=== PATIENT | male | born 1960 | race Caucasian/White ===

== ENCOUNTER 2017-12-05 11:09 | Inpatient (IN) | payer OTHER ==
[~2017-12-05] VITALS: Ht 180.3 cm; Wt 175.0 kg
[2017-12-05 12:11] LABS: Basophils # (auto) 0.1 uL; Eosinophils # (auto) 0 uL; Monocytes # (auto) 0.9 uL
[2017-12-05 12:13] LABS: Basophils % (auto) 0.4 % (0.0-2.0); Hemoglobin 13.1 g/dL (13.5-17.5); Lymphocytes # (auto) 1.1 uL; Lymphocytes % (auto) 8.4 % (10.0-50.0); Mean Corpuscular Hgb Conc. 32.1 g/dL (32.0-36.0); Mean Corpuscular Volume 77.9 fL (80.0-100.0); Monocytes % (auto) 6.7 % (0.0-12.0); Neutrophils # (auto) 11.3 uL; Neutrophils % (auto) 84.5 % (37.0-80.0); Nucleated Red Blood Cells % 0.1 %; Red Blood Cells 5.26 10^6/uL (4.5-5.90); White Blood Cell 13.4 10^3/uL (4.4-10.8)
[2017-12-05 12:14] LABS: Platelet Count (auto) 536 10^3/uL (140-450)
[2017-12-05 12:25] LABS: Urine Amorphous Crystal FEW /hpf (None Seen); Urine Bacteria FEW /hpf (None Seen); Urine Blood 2+ /uL (Negative); Urine Hyaline Cast FEW /lpf (0 - 2); Urine Mucus FEW (None Seen); Urine Specific Gravity 1.022 (1.001-1.035); Urine WBC 1 /hpf (0 - 3)
[2017-12-05 12:25] LABS: Lactic Acid w/Reflex 2.2 mmol/L (0.4-2.0)
[2017-12-05 12:29] LABS: Alanine Aminotransferase 26 U/L (16-61); Albumin 3.3 g/dL (3.4-5.0); Alkaline Phosphatase 62 U/L (45-117); Anion Gap 11 (5-15); Aspartate Aminotransferase 130 U/L (15-37); BUN/Creatinine Ratio 17.3; Bilirubin, Total 0.5 mg/dL (0.2-1.0); Blood Alcohol < 3.0 mg/dL (0-5); Blood Urea Nitrogen 51 mg/dL (7-18); Calcium 8.1 mg/dL (8.5-10.1); Carbon Dioxide 17 mmol/L (21-32); Chloride 117 mmol/L (98-107); GFR African American 29 mL/min; GFR Non-African American 24 mL/min; Glucose 145 mg/dL (74-106); Potassium 4.3 mmol/L (3.5-5.1); Sodium 145 mmol/L (136-145); Total Protein 8.5 g/dL (6.4-8.2)
[2017-12-05] MEDS ORDERED: SODIUM CHLORIDE 0.9% 1,000 ML IVB ONE (12:31)
[2017-12-05 12:37] LABS: Amphetamine Screen, Urine NEGATIVE (NEGATIVE); Barbiturate Scree,Urine NEGATIVE (NEGATIVE); Benzodiazephine Screen, Urine NEGATIVE (NEGATIVE); Cannabinoid Screen, Urine NEGATIVE (NEGATIVE); Cocaine Screen, Urine NEGATIVE (NEGATIVE); Opiate Scree,Urine NEGATIVE (NEGATIVE); Phencyclidine Screen, Urine NEGATIVE (NEGATIVE)
[2017-12-05 12:39] LABS: Alcohol, Urine < 3.0 mg/dL (0-5)
[2017-12-05] MEDS ORDERED: VANCOMYCIN 1GM/250ML 250 ML IV ONE (12:45)
[2017-12-05 13:02] LABS: INR 1.27 (0.9-1.15); Partial Thromboplastin Time 35.2 sec (23.78-33.04); Prothrombin Time 13.4 sec (9.27-12.13)
[2017-12-05] MEDS ORDERED: SODIUM CHLORIDE 0.9% 1,000 ML IV ONE ×2 (14:00→15:15)
[2017-12-05] MEDS ORDERED: CLINDAMYCIN 900MG IV 50 ML IV ONE (14:00)
[2017-12-05] MEDS ORDERED: LEVOFLOXACIN 500MG 100 ML IV ONE (14:00)
[2017-12-05] MEDS ORDERED: SODIUM CHLORIDE 0.9% 3,000 ML IV ONE (15:15)
[2017-12-05] MEDS ORDERED: TEMAZEPAM 15 MG CAP PO PRN (15:30)
[2017-12-05] MEDS ORDERED: PANTOPRAZOLE 40 MG/10 ML VIAL IV ONE (15:30)
[2017-12-05] MEDS ORDERED: MORPHINE SULF INJ 2 MG/ML SYRINGE 1ML IV PRN (15:30)
[2017-12-05] MEDS ORDERED: HYDROcodone-ACET 5/325MG TAB PO PRN (15:30)
[2017-12-05] MEDS ORDERED: PROMETHAZINE HCL 25 MG/ML 1ML IV PRN (15:30)
[2017-12-05] MEDS ORDERED: LORazepam 0.5 MG TAB PO PRN (15:30)
[2017-12-05] MEDS ORDERED: NITROGLYCERIN 0.4 MG SL TAB SL PRN (15:30)
[2017-12-05] MEDS ORDERED: ACETAMINOPHEN 500 MG TAB PO PRN (15:30)
[2017-12-05] MEDS ORDERED: SODIUM CHLORIDE 0.9% 2,000 ML IV ONE (16:00)
[2017-12-05] MEDS: CLINDAMYCIN 600MG IV 50 ML IV SCH (22:00)
[2017-12-06] VITALS (40 sets, daily range): BP systolic 83–147; BP diastolic 40–85
[2017-12-06] MEDS: SODIUM CHLORIDE 0.9% 1,000 ML IV SCH ×2 (05:55)
[2017-12-06] MEDS: CLINDAMYCIN 600MG IV 50 ML IV SCH (05:55)
[2017-12-06 07:45] LABS: Basophils # (auto) 0.1 uL; Eosinophils # (auto) 0 uL; Lymphocytes # (auto) 1.2 uL; Mean Corpuscular Volume 78.6 fL (80.0-100.0)
[2017-12-06] MEDS ORDERED: ACETAMINOPHEN 650 MG RECT SUPP PR PRN (07:45)
[2017-12-06 07:47] LABS: Basophils % (auto) 0.4 % (0.0-2.0); Eosinophils % (auto) 0.1 % (0.0-7.0); Hematocrit 38.3 % (41.0-53.0); Hemoglobin 11.7 g/dL (13.5-17.5); Lymphocytes % (auto) 9.5 % (10.0-50.0); Mean Corpuscular Hemoglobin 24.1 pg (28.0-32.0); Mean Corpuscular Hgb Conc. 30.6 g/dL (32.0-36.0); Neutrophils # (auto) 10.3 uL; Platelet Count (auto) 488 10^3/uL (140-450); Red Blood Cells 4.88 10^6/uL (4.5-5.90); Red Cell Distribution Width 17.8 % (11.8-14.3); White Blood Cell 12.5 10^3/uL (4.4-10.8)
[2017-12-06 07:59] LABS: Albumin 2.8 g/dL (3.4-5.0); BUN/Creatinine Ratio 16.7; Calcium 7.6 mg/dL (8.5-10.1); Potassium 4.6 mmol/L (3.5-5.1)
[2017-12-06 08:01] LABS: Bilirubin, Total 0.3 mg/dL (0.2-1.0); Total Protein 7.4 g/dL (6.4-8.2)
[2017-12-06] MEDS ORDERED: ETOMIDATE (2MG/ML) 20ML VIAL IV ONE ×2 (08:56→09:00)
[2017-12-06] MEDS ORDERED: SUCCINYLCHOLINE CHLORIDE 20 MG/ML 10ML VIAL IV ONE ×2 (08:57→09:00)
[2017-12-06] MEDS ORDERED: PROPOFOL 100 ML IV ONE (09:14)
[2017-12-06] MEDS ORDERED: SOD CHL 0.45% 1,000 ML IV SCH (09:15)
[2017-12-06] MEDS: MIDAZOLAM DRIP 50 mg/50mL 50 ML IV SCH ×4 (09:21→23:05)
[2017-12-06] MEDS: PROPOFOL 100 ML IV SCH ×3 (09:22→18:15)
[2017-12-06] MEDS ORDERED: LINEZOLID 600MG/300ML 300 ML IV SCH (10:00)
[2017-12-06] MEDS ORDERED: LEVOFLOXACIN 250MG 50 ML IV SCH (10:00)
[2017-12-06] MEDS: PANTOPRAZOLE 40 MG/10 ML VIAL IV SCH (11:02)
[2017-12-06] MEDS ORDERED: NOREPINEPHRINE 8 MG/250ML KIT 250 ML IV ONE (11:48)
[2017-12-06] MEDS ORDERED: LIDOCAINE 1% (LOCAL ANESTH.) PF 5ml SDV ID ONE (12:00)
[2017-12-06] MEDS ORDERED: ENOXAPARIN SOD 40 MG/0.4 ML SYRINGE SC ONE (12:00)
[2017-12-06] MEDS ORDERED: ADENOSINE 133 MG in GIVE UN-DILUTED 0 ML IV ONE (12:00)
[2017-12-06] MEDS: NOREPINEPHRINE 8 MG/250ML KIT 250 ML IV SCH (12:05)
[2017-12-06] MEDS ORDERED: CALCIUM GLUC 4.65meq/50ml D5AE 50 ML IV ONE (12:30)
[2017-12-06] MEDS: ACETAMINOPHEN 650 MG RECT SUPP PR PRN (13:13)
[2017-12-06] MEDS ORDERED: VANCOMYCIN 1GM/250ML 250 ML IV ONE (15:00)
[2017-12-06] MEDS ORDERED: VANCOMYCIN PER PHARMACY 0 MG IV SCH (15:00)
[2017-12-06] MEDS: SOD CHL 0.45% 1,000 ML IV SCH ×2 (15:53→22:15)
[2017-12-06 17:49] LABS: Potassium 4.1 mmol/L (3.5-5.1)
[2017-12-06] MEDS: SODIUM CHLOR 0.9% PF (SALINE LOCK) 10ML VIAL/SYR IV SCH (22:00)
[2017-12-07] VITALS (97 sets, daily range): BP systolic 73–166; BP diastolic 39–97
[2017-12-07] MEDS: PROPOFOL 100 ML IV SCH ×3 (02:57→15:01)
[2017-12-07 04:16] LABS: Basophils # (auto) 0.1 uL; Basophils % (auto) 0.8 % (0.0-2.0); Eosinophils # (auto) 0.1 uL; Hemoglobin 12.1 g/dL (13.5-17.5); Mean Corpuscular Hemoglobin 24.7 pg (28.0-32.0); Neutrophils # (auto) 7.4 uL; Nucleated Red Blood Cells % 0.1 %
[2017-12-07 04:17] LABS: Eosinophils % (auto) 0.9 % (0.0-7.0); Hematocrit 38.3 % (41.0-53.0); Lymphocytes % (auto) 18.7 % (10.0-50.0); Mean Corpuscular Hgb Conc. 31.6 g/dL (32.0-36.0); Mean Corpuscular Volume 78.2 fL (80.0-100.0); Monocytes # (auto) 1.2 uL; Monocytes % (auto) 11.4 % (0.0-12.0); Neutrophils % (auto) 68.2 % (37.0-80.0); Platelet Count (auto) 420 10^3/uL (140-450); Red Cell Distribution Width 17.9 % (11.8-14.3); White Blood Cell 10.9 10^3/uL (4.4-10.8)
[2017-12-07 04:44] LABS: Albumin 2.7 g/dL (3.4-5.0); BUN/Creatinine Ratio 14.4; Bilirubin, Total 0.5 mg/dL (0.2-1.0); Calcium 8.3 mg/dL (8.5-10.1); Potassium 3.9 mmol/L (3.5-5.1); Total Protein 7.1 g/dL (6.4-8.2)
[2017-12-07] MEDS: MIDAZOLAM DRIP 50 mg/50mL 50 ML IV SCH ×5 (05:31→21:00)
[2017-12-07] MEDS: SOD CHL 0.45% 1,000 ML IV SCH ×2 (06:39→13:41)
[2017-12-07] MEDS: NOREPINEPHRINE 8 MG/250ML KIT 250 ML IV SCH ×2 (08:08→21:00)
[2017-12-07] MEDS: PANTOPRAZOLE 40 MG/10 ML VIAL IV SCH (09:24)
[2017-12-07] MEDS: ENOXAPARIN SOD 40 MG/0.4 ML SYRINGE SC SCH (09:24)
[2017-12-07] MEDS: SODIUM CHLOR 0.9% PF (SALINE LOCK) 10ML VIAL/SYR IV SCH ×2 (09:25→21:34)
[2017-12-07] MEDS: ACETAMINOPHEN 650 MG RECT SUPP PR PRN (14:53)
[2017-12-07] MEDS ORDERED: VANCOMYCIN 1,500 MG in D5W 5% 250 ML IV ONE (18:30)
[2017-12-08] VITALS (106 sets, daily range): BP systolic 90–173; BP diastolic 43–110
[2017-12-08] MEDS: MIDAZOLAM DRIP 50 mg/50mL 50 ML IV SCH ×5 (00:01→12:56)
[2017-12-08 04:07] LABS: Basophils # (auto) 0.1 uL; Eosinophils # (auto) 0.4 uL; Hemoglobin 11.6 g/dL (13.5-17.5); Monocytes # (auto) 0.8 uL; Monocytes % (auto) 9.3 % (0.0-12.0); Nucleated Red Blood Cells % 0.1 %; Platelet Count (auto) 378 10^3/uL (140-450)
[2017-12-08 04:09] LABS: Basophils % (auto) 1.1 % (0.0-2.0); Eosinophils % (auto) 4.5 % (0.0-7.0); Hematocrit 36.6 % (41.0-53.0); Lymphocytes % (auto) 22.1 % (10.0-50.0); Mean Corpuscular Hemoglobin 24.6 pg (28.0-32.0); Mean Corpuscular Hgb Conc. 31.6 g/dL (32.0-36.0); Mean Corpuscular Volume 77.7 fL (80.0-100.0); Neutrophils # (auto) 5.7 uL; Red Cell Distribution Width 17.7 % (11.8-14.3)
[2017-12-08 04:29] LABS: Potassium 3.7 mmol/L (3.5-5.1)
[2017-12-08 04:38] LABS: Albumin 2.4 g/dL (3.4-5.0); Bilirubin, Total 0.5 mg/dL (0.2-1.0); Calcium 7.7 mg/dL (8.5-10.1); Total Protein 6.5 g/dL (6.4-8.2)
[2017-12-08] MEDS ORDERED: VANCOMYCIN 1,500 MG in D5W 5% 250 ML IV ONE (09:00)
[2017-12-08] MEDS: ENOXAPARIN SOD 40 MG/0.4 ML SYRINGE SC SCH (09:37)
[2017-12-08] MEDS: PANTOPRAZOLE 40 MG/10 ML VIAL IV SCH (09:37)
[2017-12-08] MEDS: SODIUM CHLOR 0.9% PF (SALINE LOCK) 10ML VIAL/SYR IV SCH ×2 (10:00→22:53)
[2017-12-08 12:32] LABS: Creatinine, Urine 188 mg/dL (30.0-125.0); Sodium Urine 72 mmol/L (40-220)
[2017-12-08] MEDS: SOD CHL 0.45% 1,000 ML IV SCH (12:50)
[2017-12-09] VITALS (104 sets, daily range): BP systolic 101–179; BP diastolic 52–116
[2017-12-09] MEDS: PROPOFOL 100 ML IV SCH ×2 (00:22→21:22)
[2017-12-09 04:56] LABS: Basophils # (auto) 0.1 uL; Eosinophils # (auto) 0.4 uL; Hemoglobin 11.5 g/dL (13.5-17.5); Lymphocytes # (auto) 1.8 uL
[2017-12-09 05:01] LABS: Basophils % (auto) 1.2 % (0.0-2.0); Eosinophils % (auto) 5.6 % (0.0-7.0); Hematocrit 36.9 % (41.0-53.0); Lymphocytes % (auto) 25.5 % (10.0-50.0); Mean Corpuscular Hemoglobin 24.2 pg (28.0-32.0); Mean Corpuscular Hgb Conc. 31.2 g/dL (32.0-36.0); Mean Corpuscular Volume 77.6 fL (80.0-100.0); Monocytes # (auto) 0.5 uL; Monocytes % (auto) 7.2 % (0.0-12.0); Neutrophils # (auto) 4.2 uL; Neutrophils % (auto) 60.5 % (37.0-80.0); Platelet Count (auto) 373 10^3/uL (140-450); Red Blood Cells 4.76 10^6/uL (4.5-5.90); Red Cell Distribution Width 17.7 % (11.8-14.3); White Blood Cell 6.9 10^3/uL (4.4-10.8)
[2017-12-09 05:28] LABS: Albumin 2.3 g/dL (3.4-5.0); BUN/Creatinine Ratio 12.4; Bilirubin, Total 0.4 mg/dL (0.2-1.0); Calcium 7.8 mg/dL (8.5-10.1); Phosphorus 2.2 mg/dL (2.5-4.90); Potassium 3.4 mmol/L (3.5-5.1); Total Protein 6.3 g/dL (6.4-8.2)
[2017-12-09] MEDS: SOD CHL 0.45% 1,000 ML IV SCH ×2 (06:25→21:18)
[2017-12-09] MEDS: SODIUM CHLOR 0.9% PF (SALINE LOCK) 10ML VIAL/SYR IV SCH ×2 (10:09→21:36)
[2017-12-09] MEDS: ENOXAPARIN SOD 40 MG/0.4 ML SYRINGE SC SCH (10:09)
[2017-12-09] MEDS: ACETAMINOPHEN 325 MG TAB PO PRN ×2 (10:09→17:03)
[2017-12-09] MEDS: PANTOPRAZOLE 40 MG/10 ML VIAL IV SCH (10:09)
[2017-12-09] MEDS: VANCOMYCIN 1,500 MG in D5W 5% 250 ML IV SCH (10:10)
[2017-12-09] MEDS ORDERED: POTASSIUM EFFERVESENT TAB 25 MEQ GT ONE (10:15)
[2017-12-09] MEDS ORDERED: POTASSIUM PHOSPHATE 22 MEQ in SODIUM CHL 0.9% 100 ML IV ONE (10:15)
[2017-12-09] MEDS: NOREPINEPHRINE 8 MG/250ML KIT 250 ML IV SCH (12:39)
[2017-12-09] MEDS: MORPHINE SULF INJ 2 MG/ML SYRINGE 1ML IV PRN ×2 (15:09→19:07)
[2017-12-09] MEDS: DEXMEDETOMIDINE HCL 400 MCG in D5W 5% 96 ML IV SCH (21:19)
[2017-12-10] VITALS (62 sets, daily range): BP systolic 101–181; BP diastolic 54–134
[2017-12-10 04:02] LABS: Albumin 2.4 g/dL (3.4-5.0); Calcium 8.1 mg/dL (8.5-10.1)
[2017-12-10 04:07] LABS: BUN/Creatinine Ratio 11.6; Bilirubin, Total 0.4 mg/dL (0.2-1.0); Total Protein 6.5 g/dL (6.4-8.2)
[2017-12-10] MEDS: DEXMEDETOMIDINE HCL 400 MCG in D5W 5% 96 ML IV SCH ×2 (05:20→17:06)
[2017-12-10 06:26] LABS: Eosinophils # (auto) 0.4 uL; Monocytes # (auto) 0.6 uL; Neutrophils # (auto) 5.4 uL; Red Cell Distribution Width 17.4 % (11.8-14.3); White Blood Cell 7.9 10^3/uL (4.4-10.8)
[2017-12-10 06:33] LABS: Basophils # (auto) 0.1 uL; Basophils % (auto) 0.7 % (0.0-2.0); Eosinophils % (auto) 5.7 % (0.0-7.0); Hematocrit 36.6 % (41.0-53.0); Hemoglobin 11.7 g/dL (13.5-17.5); Lymphocytes # (auto) 1.4 uL; Lymphocytes % (auto) 17.5 % (10.0-50.0); Mean Corpuscular Hemoglobin 24.8 pg (28.0-32.0); Mean Corpuscular Volume 77.6 fL (80.0-100.0); Monocytes % (auto) 7.9 % (0.0-12.0); Neutrophils % (auto) 68.2 % (37.0-80.0); Platelet Count (auto) 348 10^3/uL (140-450); Red Blood Cells 4.72 10^6/uL (4.5-5.90)
[2017-12-10] MEDS: MIDAZOLAM DRIP 50 mg/50mL 50 ML IV SCH (08:55)
[2017-12-10] MEDS: VANCOMYCIN 1,500 MG in D5W 5% 250 ML IV SCH (09:21)
[2017-12-10] MEDS: SODIUM CHLOR 0.9% PF (SALINE LOCK) 10ML VIAL/SYR IV SCH (10:04)
[2017-12-10] MEDS: PANTOPRAZOLE 40 MG/10 ML VIAL IV SCH (10:04)
[2017-12-10] MEDS: ENOXAPARIN SOD 40 MG/0.4 ML SYRINGE SC SCH (10:05)
[2017-12-10] MEDS: LABETALOL HCL 5 MG/ML ML 20ML VIAL IV PRN (10:06)
[2017-12-10] MEDS: ACETAMINOPHEN 325 MG TAB PO PRN (10:18)
[2017-12-10] MEDS: NOREPINEPHRINE 8 MG/250ML KIT 250 ML IV SCH (12:00)
[2017-12-10] MEDS: PROPOFOL 100 ML IV SCH (18:22)
[2017-12-10] MEDS: SOD CHL 0.45% 1,000 ML IV SCH (19:30)
[2017-12-11] VITALS (27 sets, daily range): BP systolic 139–167; BP diastolic 62–105
[2017-12-11] MEDS: VANCOMYCIN 1,500 MG in D5W 5% 250 ML IV SCH (09:33)
[2017-12-11] MEDS: PANTOPRAZOLE 40 MG/10 ML VIAL IV SCH (10:56)
[2017-12-11] MEDS: FLUCONAZOLE 200MG/100ML 100 ML IV SCH (10:58)
[2017-12-11] MEDS: ENOXAPARIN SOD 40 MG/0.4 ML SYRINGE SC SCH (10:58)
[2017-12-11] MEDS: SODIUM CHLOR 0.9% PF (SALINE LOCK) 10ML VIAL/SYR IV SCH ×3 (10:58→20:59)
[2017-12-12] VITALS (7 sets, daily range): BP systolic 130–159; BP diastolic 61–104
[2017-12-12] MEDS: LABETALOL HCL 5 MG/ML ML 20ML VIAL IV PRN (05:33)
[2017-12-12] MEDS: VANCOMYCIN 1,500 MG in D5W 5% 250 ML IV SCH (09:26)
[2017-12-12] MEDS ORDERED: ASPI81CH43 PO (10:19)
[2017-12-12] MEDS: FLUCONAZOLE 200MG/100ML 100 ML IV SCH (10:21)
[2017-12-12] MEDS: SODIUM CHLOR 0.9% PF (SALINE LOCK) 10ML VIAL/SYR IV SCH ×2 (10:21→22:03)
[2017-12-12] MEDS: PANTOPRAZOLE 40 MG/10 ML VIAL IV SCH (10:21)
[2017-12-12] MEDS: ENOXAPARIN SOD 40 MG/0.4 ML SYRINGE SC SCH (10:22)
[2017-12-12] MEDS ORDERED: LISINOPRIL 20 MG TAB PO ONE (11:45)
[2017-12-12] MEDS: LISINOPRIL 20 MG TAB PO SCH (22:03)
[2017-12-13] MEDS: ACETAMINOPHEN 325 MG TAB PO PRN ×2 (00:48→17:53)
[2017-12-13 05:00] VITALS: BP 137/72
[2017-12-13 09:00] VITALS: BP 143/85
[2017-12-13] MEDS: VANCOMYCIN 1,500 MG in D5W 5% 250 ML IV SCH (09:00)
[2017-12-13 09:28] LABS: Basophils # (auto) 0 uL; Hemoglobin 12.2 g/dL (13.5-17.5); Red Cell Distribution Width 17.6 % (11.8-14.3)
[2017-12-13 09:32] LABS: Basophils % (auto) 0.6 % (0.0-2.0); Eosinophils # (auto) 0.3 uL; Eosinophils % (auto) 4.5 % (0.0-7.0); Hematocrit 39.1 % (41.0-53.0); Lymphocytes # (auto) 1.2 uL; Mean Corpuscular Hemoglobin 24.5 pg (28.0-32.0); Mean Corpuscular Hgb Conc. 31.3 g/dL (32.0-36.0); Mean Corpuscular Volume 78.1 fL (80.0-100.0); Monocytes # (auto) 0.6 uL; Neutrophils % (auto) 68.9 % (37.0-80.0); Platelet Count (auto) 263 10^3/uL (140-450); White Blood Cell 7.2 10^3/uL (4.4-10.8)
[2017-12-13 09:49] LABS: Albumin 2.6 g/dL (3.4-5.0); BUN/Creatinine Ratio 9.1; Bilirubin, Total 0.8 mg/dL (0.2-1.0); Phosphorus 3.2 mg/dL (2.5-4.90); Potassium 3.6 mmol/L (3.5-5.1); Total Protein 6.9 g/dL (6.4-8.2)
[2017-12-13] MEDS: PANTOPRAZOLE 40 MG/10 ML VIAL IV SCH (10:30)
[2017-12-13] MEDS: SODIUM CHLOR 0.9% PF (SALINE LOCK) 10ML VIAL/SYR IV SCH ×2 (10:30→21:31)
[2017-12-13] MEDS: FLUCONAZOLE 200MG/100ML 100 ML IV SCH (10:30)
[2017-12-13] MEDS: ENOXAPARIN SOD 40 MG/0.4 ML SYRINGE SC SCH (10:31)
[2017-12-13] MEDS: LISINOPRIL 20 MG TAB PO SCH ×2 (10:31→21:30)
[2017-12-13 12:32] VITALS: BP 131/78
[2017-12-13 17:00] VITALS: BP 140/97
[2017-12-13] MEDS ORDERED: LISI-646 PO (19:05)
[2017-12-13] MEDS: Pro-Stat SF 30ml Vanilla PO SCH (21:30)
[2017-12-13] MEDS: ASCORBIC ACID 500 MG TAB PO SCH (21:30)
[2017-12-13 21:53] VITALS: BP 140/88
[2017-12-14 05:03] VITALS: BP 142/89
[2017-12-14 06:55] LABS: Basophils # (auto) 0.1 uL; Eosinophils # (auto) 0.4 uL; Hematocrit 36.6 % (41.0-53.0); Monocytes # (auto) 0.7 uL; Neutrophils % (auto) 65.7 % (37.0-80.0)
[2017-12-14 06:58] LABS: Basophils % (auto) 1.2 % (0.0-2.0); Hemoglobin 11.6 g/dL (13.5-17.5); Lymphocytes # (auto) 1.4 uL; Lymphocytes % (auto) 18.5 % (10.0-50.0); Mean Corpuscular Hemoglobin 24.8 pg (28.0-32.0); Mean Corpuscular Hgb Conc. 31.8 g/dL (32.0-36.0); Mean Corpuscular Volume 78.1 fL (80.0-100.0); Monocytes % (auto) 9.6 % (0.0-12.0); Neutrophils # (auto) 4.9 uL; Nucleated Red Blood Cells % 0.4 %; Platelet Count (auto) 212 10^3/uL (140-450); Red Blood Cells 4.68 10^6/uL (4.5-5.90); Red Cell Distribution Width 17.8 % (11.8-14.3); White Blood Cell 7.4 10^3/uL (4.4-10.8)
[2017-12-14 07:20] LABS: Albumin 2.5 g/dL (3.4-5.0); BUN/Creatinine Ratio 8.8; Bilirubin, Total 0.8 mg/dL (0.2-1.0); Calcium 7.7 mg/dL (8.5-10.1); Potassium 3.5 mmol/L (3.5-5.1); Total Protein 6.6 g/dL (6.4-8.2)
[2017-12-14 08:00] VITALS: BP 140/88
[2017-12-14 09:30] VITALS: BP 141/90
[2017-12-14] MEDS: PANTOPRAZOLE 40 MG/10 ML VIAL IV SCH (10:40)
[2017-12-14] MEDS: FLUCONAZOLE 200MG/100ML 100 ML IV SCH (10:40)
[2017-12-14] MEDS: SODIUM CHLOR 0.9% PF (SALINE LOCK) 10ML VIAL/SYR IV SCH ×2 (10:40→21:47)
[2017-12-14] MEDS: VANCOMYCIN 1,500 MG in D5W 5% 250 ML IV SCH (10:40)
[2017-12-14] MEDS: ASCORBIC ACID 500 MG TAB PO SCH ×2 (10:41→22:40)
[2017-12-14] MEDS: Pro-Stat SF 30ml Vanilla PO SCH ×2 (10:41→21:47)
[2017-12-14] MEDS: B-COMPLEX W/ C & FOLIC ACID(NEPHROVITE TAB) PO SCH (10:41)
[2017-12-14] MEDS: LISINOPRIL 20 MG TAB PO SCH ×2 (10:41→22:41)
[2017-12-14] MEDS: ENOXAPARIN SOD 40 MG/0.4 ML SYRINGE SC SCH (10:41)
[2017-12-14 13:00] VITALS: BP 117/63
[2017-12-14 21:37] VITALS: BP 157/96
[2017-12-15 05:26] VITALS: BP 159/86
[2017-12-15 08:00] VITALS: BP 157/76
[2017-12-15 09:00] VITALS: BP_SYST 101; BP_SYST 153; BP_DIAS 75; BP_DIAS 97
[2017-12-15] MEDS: ASCORBIC ACID 500 MG TAB PO SCH (10:09)
[2017-12-15] MEDS: Pro-Stat SF 30ml Vanilla PO SCH (10:09)
[2017-12-15] MEDS: B-COMPLEX W/ C & FOLIC ACID(NEPHROVITE TAB) PO SCH (10:09)
[2017-12-15] MEDS: SODIUM CHLOR 0.9% PF (SALINE LOCK) 10ML VIAL/SYR IV SCH (10:09)
[2017-12-15] MEDS: PANTOPRAZOLE 40 MG/10 ML VIAL IV SCH (10:09)
[2017-12-15] MEDS: FLUCONAZOLE 200MG/100ML 100 ML IV SCH (10:09)
[2017-12-15] MEDS: LISINOPRIL 20 MG TAB PO SCH (10:11)
[2017-12-15] MEDS: ENOXAPARIN SOD 40 MG/0.4 ML SYRINGE SC SCH (10:11)
[2017-12-15 10:20] VITALS: BP 153/97
[2017-12-15] MEDS: VANCOMYCIN 1,500 MG in D5W 5% 250 ML IV SCH (12:06)
[2017-12-15 13:00] VITALS: BP 144/93
== END 2017-12-15 15:16 | disposition home health service (06) | DRG 871 ==
LOC: EDBD 11:09 → ER 11:09 → OVERFLOW 11:10 → ICU WEST 12-06 14:59 → TELE-WESTW 12-12 00:25
PROVIDERS: ADMIT Internal Medicine; ATTEND Family Medicine
PROC: 02HV33Z Insertion of Infusion Device into Superior Vena Cava, Percutaneous Approach (ICD-10-PCS; 2017-12-05)
PROC: 5A1945Z Respiratory Ventilation, 24-96 Consecutive Hours (ICD-10-PCS; principal; 2017-12-06)
PROC: 0BH17EZ Insertion of Endotracheal Airway into Trachea, Via Natural or Artificial Opening (ICD-10-PCS; 2017-12-06)
DX: A41.9 Sepsis, unspecified organism (principal); E11.01 Type 2 diabetes mellitus with hyperosmolarity with coma; G92 Toxic encephalopathy; R65.21 Severe sepsis with septic shock; J96.21 Acute and chronic respiratory failure with hypoxia; N17.0 Acute kidney failure with tubular necrosis; J96.22 Acute and chronic respiratory failure with hypercapnia; N18.4 Chronic kidney disease, stage 4 (severe); N39.0 Urinary tract infection, site not specified; M62.82 Rhabdomyolysis; L03.116 Cellulitis of left lower limb; L03.115 Cellulitis of right lower limb; E44.1 Mild protein-calorie malnutrition; E87.1 Hypo-osmolality and hyponatremia; E87.4 Mixed disorder of acid-base balance; I13.0 Hypertensive heart and chronic kidney disease with heart failure and stage 1 through stage 4 chronic kidney disease, or unspecified chronic kidney disease; L97.909 Non-pressure chronic ulcer of unspecified part of unspecified lower leg with unspecified severity; Z68.43 Body mass index [BMI] 50.0-59.9, adult; E66.01 Morbid (severe) obesity due to excess calories; I49.3 Ventricular premature depolarization; D64.9 Anemia, unspecified; E11.22 Type 2 diabetes mellitus with diabetic chronic kidney disease; E11.622 Type 2 diabetes mellitus with other skin ulcer; E83.39 Other disorders of phosphorus metabolism; E86.0 Dehydration; E87.6 Hypokalemia; G47.30 Sleep apnea, unspecified; I25.10 Atherosclerotic heart disease of native coronary artery without angina pectoris; I50.9 Heart failure, unspecified; I67.2 Cerebral atherosclerosis; Z82.3 Family history of stroke; Z82.49 Family history of ischemic heart disease and other diseases of the circulatory system; Z83.3 Family history of diabetes mellitus; Z79.899 Other long term (current) drug therapy; Z79.82 Long term (current) use of aspirin; Z88.0 Allergy status to penicillin
CPT/HCPCS: 36415; 36569; 36600; 51702; 70450; 71045; 71250; 73700; 76775; 80048; 80053; 80202; 80307; 80320; 81001; 82550; 82570; 82805; 82962; 83036; 83605; 83735; 84100; 84300; 84443; 84484; 85025; 85379; 85610; 85730; 87040; 87070; 87077; 87081; 87086; 87186; 87205; 93005; 93970; 94002; 94003; 94640; 94761; 95819; 96361; 96365; 96366; 96367; 96368; 97163; 99291; C9113; G0378; J0153; J0330; J0610; J1450; J1956; J2250; J2704; J3490; J7060

== ENCOUNTER 2020-01-12 04:17 | Inpatient (IN) | payer OTHER ==
[~2020-01-12] VITALS: Ht 182.9 cm; Wt 173.8 kg
[~2020-01-12 04:17] MED LIST: ASPI81CH43 PO; LISI-646 PO
[2020-01-12 05:49] LABS: Basophils # (auto) 0.1 10 ^3/uL (0-0.2); Eosinophils # (auto) 0.1 10 ^3/uL (0-0.8); Monocytes # (auto) 0.7 10 ^3/uL (0-1.3)
[2020-01-12 05:52] LABS: Basophils % (auto) 0.5 % (0.0-2.0); Eosinophils % (auto) 0.7 % (0.0-7.0); Hematocrit 48.7 % (41.0-53.0); Hemoglobin 15.2 g/dL (13.5-17.5); Lymphocytes % (auto) 23.3 % (10.0-50.0); Mean Corpuscular Hemoglobin 24.4 pg (28.0-32.0); Mean Corpuscular Hgb Conc. 31.2 g/dL (32.0-36.0); Mean Corpuscular Volume 78.3 fL (80.0-100.0); Monocytes % (auto) 5.6 % (0.0-12.0); Neutrophils % (auto) 69.9 % (37.0-80.0); Platelet Count (auto) 254 10^3/uL (140-450); Red Blood Cells 6.22 10^6/uL (4.5-5.90); White Blood Cell 12.8 10^3/uL (4.4-10.8)
[2020-01-12 06:03] LABS: INR 1.08 (0.9-1.15); Partial Thromboplastin Time 29.6 sec (23.0-31.2)
[2020-01-12 06:05] LABS: Potassium 4.4 mmol/L (3.5-5.1)
[2020-01-12 06:16] LABS: Albumin 3.4 g/dL (3.4-5.0); BUN/Creatinine Ratio 19.6; Bilirubin, Total 0.7 mg/dL (0.2-1.0); Calcium 8.6 mg/dL (8.5-10.1); Total Protein 8.4 g/dL (6.4-8.2)
[2020-01-12] MEDS ORDERED: DexAMETHasone SOD PHOS 10MG/1ML VIAL INJ IV ONE (06:45)
[2020-01-12 07:20] LABS: CRP High Sensitivity 5.37 mg/dL (< 0.3)
[2020-01-12] MEDS ORDERED: ENOXAPARIN SOD 150 MG/1 ML SYRINGE SC ONE (07:30)
[2020-01-12] MEDS ORDERED: ASPirin 81 mg TAB PO ONE (07:30)
[2020-01-12] MEDS ORDERED: FUROSEMIDE 20 MG/2 ML VIAL IV ONE ×2 (07:30→09:00)
[2020-01-12] MEDS ORDERED: LORazepam 2MG/ML-1ML VIAL IV PRN (09:00)
[2020-01-12] MEDS ORDERED: CHOLECALCIFEROL (VITD3) 2,000 UNIT CAP PO ONE (09:00)
[2020-01-12] MEDS ORDERED: MORPHINE SULF INJ 2 MG/ML SYRINGE 1ML IV PRN (09:00)
[2020-01-12] MEDS ORDERED: NITROGLYCERIN 0.4 MG SL TAB SL PRN (09:00)
[2020-01-12] MEDS ORDERED: THIAMINE 100mg/ml INJ (200mg/2ml VIAL) IV ONE (09:00)
[2020-01-12] MEDS ORDERED: ASCORBIC ACID 500 MG TAB PO ONE (09:00)
[2020-01-12] MEDS ORDERED: VANCOMYCIN PER PHARMACY 1,000 MG IV SCH (09:00)
[2020-01-12] MEDS ORDERED: LACTATED RINGER'S 1,000 ML IV ONE (09:00)
[2020-01-12] MEDS ORDERED: MEROPENEM 500MG IVPB 50 ML IV ONE (09:00)
[2020-01-12] MEDS ORDERED: MORPHINE SULFATE 4 MG/ML SYR/VIAL IV PRN (09:00)
[2020-01-12] MEDS ORDERED: SODIUM CHLORIDE 0.9% 1,000 ML IV SCH ×2 (09:00→15:30)
[2020-01-12] MEDS ORDERED: METOPROLOL SUCCINATE XL 50 MG TAB PO ONE (09:15)
[2020-01-12] MEDS: THIAMINE 100mg/ml INJ (200mg/2ml VIAL) IV SCH (09:20)
[2020-01-12] MEDS: ASPirin 81 mg TAB PO SCH (09:21)
[2020-01-12] MEDS: ENOXAPARIN SOD 40 MG/0.4 ML SYRINGE SC SCH (09:21)
[2020-01-12] MEDS: FAMOTIDINE (10MG/ML) 2ML VL IV SCH (09:21)
[2020-01-12] MEDS ORDERED: MEROPENEM 500MG IVPB 50 ML IV SCH (10:00)
[2020-01-12] MEDS ORDERED: ASCORBIC ACID 500 MG TAB PO SCH (10:00)
[2020-01-12] MEDS ORDERED: CHOLECALCIFEROL (VITD3) 2,000 UNIT CAP PO SCH (10:00)
[2020-01-12] MEDS: MEROPENEM 1GM IVPB 100 ML IV SCH ×2 (10:07→23:00)
[2020-01-12] MEDS ORDERED: ATORVASTATIN 20 MG TAB PO ONE (10:15)
[2020-01-12 10:42] LABS: Cholesterol 184 mg/dL (< 200)
[2020-01-12 10:46] LABS: HDL Cholesterol 31 mg/dL (40-59); LDL Cholesterol 132 mg/dL (< 100); Triglycerides 161 mg/dL (< 150)
[2020-01-12 10:48] LABS: Lactic Acid w/Reflex 2.3 mmol/L (0.4-2.0)
[2020-01-12 12:00] VITALS: BP 94/61
[2020-01-12] MEDS ORDERED: VANCOMYCIN 1GM/250ML 250 ML IV ONE (12:00)
[2020-01-12] MEDS ORDERED: HYDROCORTISONE SOD SUCC 100 MG/2ML INJ VIAL IV SCH (12:00)
[2020-01-12] MEDS ORDERED: GLIP5TAB12 PO (12:47)
[2020-01-12 13:50] LABS: Urine Bacteria NONE SEEN /hpf (None Seen); Urine Blood 2+ /uL (Negative); Urine Mucus FEW (None Seen); Urine Specific Gravity 1.013 (1.001-1.035); Urine WBC <1 /hpf (0 - 3)
[2020-01-12 13:52] LABS: Protein, Urine 23.6 mg/dL (0.0-11.9)
[2020-01-12] MEDS ORDERED: DOXYCYCLINE 100 MG TAB/CAP PO ONE (15:30)
[2020-01-12] MEDS ORDERED: CLINDAMYCIN 600MG IV 50 ML IV ONE (15:45)
[2020-01-12] MEDS ORDERED: ALBUMIN 5% 250 ML IV ONE (16:00)
[2020-01-12 17:00] VITALS: BP 109/65
[2020-01-12] MEDS ORDERED: FUROSEMIDE 20 MG/2 ML VIAL IV SCH (18:00)
[2020-01-12] MEDS: FUROSEMIDE 40 MG/4 ML VIAL IV SCH (18:30)
[2020-01-12 20:00] VITALS: BP 127/78
[2020-01-12 21:28] VITALS: BP 127/75
[2020-01-12] MEDS: CARVEDILOL 3.125 MG TAB PO SCH (21:51)
[2020-01-12] MEDS: ATORVASTATIN 20 MG TAB PO SCH (21:52)
[2020-01-12] MEDS: DOXYCYCLINE 100 MG TAB/CAP PO SCH (21:52)
[2020-01-12] MEDS: CLINDAMYCIN 600MG IV 50 ML IV SCH (22:00)
[2020-01-13] MEDS: CLINDAMYCIN 600MG IV 50 ML IV SCH (05:13)
[2020-01-13] MEDS: FUROSEMIDE 40 MG/4 ML VIAL IV SCH (05:13)
[2020-01-13 05:16] VITALS: BP 110/74
[2020-01-13 05:20] LABS: Eosinophils # (auto) 0 10 ^3/uL (0-0.8); Hemoglobin 15.9 g/dL (13.5-17.5); Monocytes # (auto) 1.1 10 ^3/uL (0-1.3); Nucleated Red Blood Cells % 0.1 %; Red Blood Cells 6.36 10^6/uL (4.5-5.90)
[2020-01-13 05:21] LABS: Basophils # (auto) 0 10 ^3/uL (0-0.2); Basophils % (auto) 0.2 % (0.0-2.0); Lymphocytes # (auto) 1.6 10 ^3/uL (0.4-5.4); Lymphocytes % (auto) 10.5 % (10.0-50.0); Mean Corpuscular Hgb Conc. 31.8 g/dL (32.0-36.0); Mean Corpuscular Volume 78.6 fL (80.0-100.0); Monocytes % (auto) 7.2 % (0.0-12.0); Neutrophils # (auto) 12.7 10 ^3/uL (1.6-8.6); Neutrophils % (auto) 82.1 % (37.0-80.0); Platelet Count (auto) 249 10^3/uL (140-450); Red Cell Distribution Width 18.3 % (11.8-14.3); White Blood Cell 15.5 10^3/uL (4.4-10.8)
[2020-01-13 05:38] LABS: Calcium 8.5 mg/dL (8.5-10.1); Potassium 4.2 mmol/L (3.5-5.1)
[2020-01-13 05:41] LABS: BUN/Creatinine Ratio 24.5
[2020-01-13 09:00] VITALS: BP 92/57
[2020-01-13] MEDS: CARVEDILOL 3.125 MG TAB PO SCH ×2 (10:00→22:00)
[2020-01-13] MEDS ORDERED: LISINOPRIL 5 MG TAB PO SCH (10:00)
[2020-01-13] MEDS: THIAMINE 100mg/ml INJ (200mg/2ml VIAL) IV SCH (11:00)
[2020-01-13] MEDS: DOXYCYCLINE 100 MG TAB/CAP PO SCH (11:00)
[2020-01-13] MEDS: FAMOTIDINE (10MG/ML) 2ML VL IV SCH (11:00)
[2020-01-13] MEDS: ASPirin 81 mg TAB PO SCH (11:00)
[2020-01-13] MEDS: ENOXAPARIN SOD 40 MG/0.4 ML SYRINGE SC SCH (11:00)
[2020-01-13] MEDS: MEROPENEM 1GM IVPB 100 ML IV SCH (12:00)
[2020-01-13 13:00] VITALS: BP 113/77
[2020-01-13] MEDS: LINEZOLID 600MG/300ML 300 ML IV SCH ×2 (14:30→21:00)
[2020-01-13] MEDS: CHOLECALCIFEROL (VITD3) 1,000UNIT=25mCg TAB PO SCH (14:30)
[2020-01-13] MEDS ORDERED: SODIUM CHLORIDE 0.9% 500 ML IV ONE (16:15)
[2020-01-13 17:05] VITALS: BP 109/60
[2020-01-13] MEDS ORDERED: SODIUM CHLORIDE 0.9% 1,000 ML IV ONE (17:30)
[2020-01-13 22:00] VITALS: BP 100/73
[2020-01-13] MEDS: ATORVASTATIN 20 MG TAB PO SCH (22:07)
[2020-01-14 05:00] VITALS: BP 105/45
[2020-01-14 05:37] LABS: Hemoglobin 13.9 g/dL (13.5-17.5)
[2020-01-14 05:43] LABS: Basophils # (auto) 0.2 10 ^3/uL (0-0.2); Basophils % (auto) 1.1 % (0.0-2.0); Eosinophils # (auto) 0.3 10 ^3/uL (0-0.8); Eosinophils % (auto) 2.3 % (0.0-7.0); Lymphocytes # (auto) 3.1 10 ^3/uL (0.4-5.4); Lymphocytes % (auto) 22.2 % (10.0-50.0); Mean Corpuscular Hemoglobin 24.9 pg (28.0-32.0); Mean Corpuscular Hgb Conc. 31.7 g/dL (32.0-36.0); Mean Corpuscular Volume 78.5 fL (80.0-100.0); Monocytes % (auto) 7.1 % (0.0-12.0); Neutrophils # (auto) 9.4 10 ^3/uL (1.6-8.6); Neutrophils % (auto) 67.3 % (37.0-80.0); Platelet Count (auto) 223 10^3/uL (140-450); Red Cell Distribution Width 17.8 % (11.8-14.3); White Blood Cell 13.9 10^3/uL (4.4-10.8)
[2020-01-14 05:55] LABS: BUN/Creatinine Ratio 28.9; Potassium 3.7 mmol/L (3.5-5.1)
[2020-01-14] MEDS ORDERED: SODIUM CHLORIDE 0.9% 1,000 ML IV ONE (08:45)
[2020-01-14 09:00] VITALS: BP 107/60
[2020-01-14] MEDS: CARVEDILOL 3.125 MG TAB PO SCH ×2 (10:00→21:55)
[2020-01-14] MEDS: LINEZOLID 600MG/300ML 300 ML IV SCH (11:00)
[2020-01-14 12:52] VITALS: BP 111/63
[2020-01-14 16:58] VITALS: BP 123/58
[2020-01-14 21:51] VITALS: BP 91/44
[2020-01-14] MEDS: MEROPENEM 1GM IVPB 100 ML IV SCH (21:55)
[2020-01-14] MEDS: ATORVASTATIN 20 MG TAB PO SCH (21:55)
[2020-01-15] MEDS: LINEZOLID 600MG/300ML 300 ML IV SCH (02:04)
[2020-01-15 05:42] VITALS: BP 95/68
[2020-01-15 05:43] LABS: BUN/Creatinine Ratio 29.1; Calcium 7.5 mg/dL (8.5-10.1); Potassium 3.8 mmol/L (3.5-5.1)
[2020-01-15 09:00] VITALS: BP 136/62
[2020-01-15] MEDS ORDERED: SODIUM CHLORIDE 0.9% 1,000 ML IV ONE (09:15)
[2020-01-15] MEDS: FAMOTIDINE (10MG/ML) 2ML VL IV SCH (10:00)
[2020-01-15] MEDS: ASPirin 81 mg TAB PO SCH (11:40)
[2020-01-15] MEDS: CHOLECALCIFEROL (VITD3) 1,000UNIT=25mCg TAB PO SCH (11:40)
[2020-01-15] MEDS: ENOXAPARIN SOD 40 MG/0.4 ML SYRINGE SC SCH (11:40)
[2020-01-15] MEDS: CARVEDILOL 3.125 MG TAB PO SCH ×2 (11:42→20:59)
[2020-01-15] MEDS: THIAMINE 100mg/ml INJ (200mg/2ml VIAL) IV SCH (11:43)
[2020-01-15] MEDS: MEROPENEM 1GM IVPB 100 ML IV SCH ×2 (11:59→21:00)
[2020-01-15 13:00] VITALS: BP 113/63
[2020-01-15 16:52] VITALS: BP 114/68
[2020-01-15] MEDS: ATORVASTATIN 20 MG TAB PO SCH (20:30)
[2020-01-15 22:00] VITALS: BP 128/86
[2020-01-16] MEDS: LINEZOLID 600MG/300ML 300 ML IV SCH (02:04)
[2020-01-16] MEDS: MEROPENEM 1GM IVPB 100 ML IV SCH ×2 (04:09→12:00)
[2020-01-16 05:23] VITALS: BP 134/80
[2020-01-16 08:00] VITALS: BP 127/85
[2020-01-16 09:00] VITALS: BP 127/85
[2020-01-16] MEDS: THIAMINE 100mg/ml INJ (200mg/2ml VIAL) IV SCH (09:58)
[2020-01-16] MEDS: ASPirin 81 mg TAB PO SCH (10:09)
[2020-01-16 10:37] VITALS: BP 127/84
[2020-01-16] MEDS: FAMOTIDINE (10MG/ML) 2ML VL IV SCH (10:37)
[2020-01-16] MEDS: CHOLECALCIFEROL (VITD3) 1,000UNIT=25mCg TAB PO SCH (10:38)
[2020-01-16] MEDS: CARVEDILOL 3.125 MG TAB PO SCH (10:38)
[2020-01-16] MEDS: ENOXAPARIN SOD 40 MG/0.4 ML SYRINGE SC SCH (10:38)
== END 2020-01-16 12:19 | disposition home or self-care (01) | DRG 871 ==
LOC: EDBD 04:17 → ER 04:17 → TELE 04:18 → TELE-EAST 11:41 → TELE-CENTR 17:49
PROVIDERS: ADMIT Hospitalist; ATTEND Family Medicine
DX: A41.9 Sepsis, unspecified organism (principal); I21.A1 Myocardial infarction type 2; N17.0 Acute kidney failure with tubular necrosis; I50.33 Acute on chronic diastolic (congestive) heart failure; L03.115 Cellulitis of right lower limb; L03.116 Cellulitis of left lower limb; E87.1 Hypo-osmolality and hyponatremia; I13.0 Hypertensive heart and chronic kidney disease with heart failure and stage 1 through stage 4 chronic kidney disease, or unspecified chronic kidney disease; Z68.43 Body mass index [BMI] 50.0-59.9, adult; Z20.828 Contact with and (suspected) exposure to other viral communicable diseases; N18.3 Chronic kidney disease, stage 3 (moderate); I49.3 Ventricular premature depolarization; E66.01 Morbid (severe) obesity due to excess calories; I87.2 Venous insufficiency (chronic) (peripheral); R80.9 Proteinuria, unspecified; R31.9 Hematuria, unspecified; E11.22 Type 2 diabetes mellitus with diabetic chronic kidney disease; E11.40 Type 2 diabetes mellitus with diabetic neuropathy, unspecified; E78.00 Pure hypercholesterolemia, unspecified; I50.82 Biventricular heart failure; Z79.82 Long term (current) use of aspirin; Z79.84 Long term (current) use of oral hypoglycemic drugs; Z79.899 Other long term (current) drug therapy; Z81.8 Family history of other mental and behavioral disorders; Z82.49 Family history of ischemic heart disease and other diseases of the circulatory system; Z83.3 Family history of diabetes mellitus; Z91.19 Patient's noncompliance with other medical treatment and regimen; R65.20 Severe sepsis without septic shock
CPT/HCPCS: 36415; 71045; 76775; 80048; 80053; 80061; 81001; 82570; 82728; 82962; 83036; 83605; 83615; 83735; 83880; 84156; 84300; 84443; 84484; 85025; 85379; 85610; 85730; 86141; 87040; 87086; 87426; 93005; 93306; 93926; 93970; 96372; 96374; 96375; 99291; G0378; J1100; J2185; J3490

== ENCOUNTER 2020-01-22 17:17 | Inpatient (IN) | payer OTHER ==
[~2020-01-22] VITALS: Ht 172.7 cm; Wt 171.4 kg
[~2020-01-22 17:17] MED LIST changes: +GLIP5TAB12 PO
[2020-01-22] MEDS ORDERED: FUROSEMIDE 40 MG/4 ML VIAL IV ONE (17:45)
[2020-01-22 19:09] LABS: Basophils # (auto) 0.1 10 ^3/uL (0-0.2); Nucleated Red Blood Cells % 0.1 %
[2020-01-22 19:10] LABS: Basophils % (auto) 0.6 % (0.0-2.0); Eosinophils # (auto) 0.2 10 ^3/uL (0-0.8); Eosinophils % (auto) 1.3 % (0.0-7.0); Lymphocytes # (auto) 1.9 10 ^3/uL (0.4-5.4); Lymphocytes % (auto) 14.2 % (10.0-50.0); Mean Corpuscular Hemoglobin 24.2 pg (28.0-32.0); Mean Corpuscular Hgb Conc. 31.3 g/dL (32.0-36.0); Mean Corpuscular Volume 77.4 fL (80.0-100.0); Monocytes # (auto) 0.8 10 ^3/uL (0-1.3); Neutrophils # (auto) 10.4 10 ^3/uL (1.6-8.6); Neutrophils % (auto) 77.9 % (37.0-80.0); Platelet Count (auto) 278 10^3/uL (140-450); Red Cell Distribution Width 17.5 % (11.8-14.3); White Blood Cell 13.4 10^3/uL (4.4-10.8)
[2020-01-22 19:11] LABS: Albumin 3.4 g/dL (3.4-5.0); BUN/Creatinine Ratio 20.7; Calcium 9.3 mg/dL (8.5-10.1); Magnesium 2.2 mg/dL (1.6-2.6); Potassium 4.2 mmol/L (3.5-5.1)
[2020-01-22 19:16] LABS: Bilirubin, Total 0.8 mg/dL (0.2-1.0); Total Protein 8.1 g/dL (6.4-8.2)
[2020-01-22] MEDS ORDERED: NITROGLYCERIN 0.4 MG SL TAB SL PRN (19:30)
[2020-01-22] MEDS ORDERED: levoFLOXacin 500MG 100 ML IV ONE (19:30)
[2020-01-22] MEDS ORDERED: PROMETHAZINE HCL 25 MG/ML 1ML IV PRN (19:30)
[2020-01-22] MEDS ORDERED: TEMAZEPAM 15 MG CAP PO PRN (19:30)
[2020-01-22] MEDS ORDERED: ACETAMINOPHEN 500 MG TAB PO PRN (19:30)
[2020-01-22] MEDS ORDERED: MORPHINE SULF INJ 2 MG/ML SYRINGE 1ML IV PRN ×2 (19:30)
[2020-01-22] MEDS ORDERED: traMADol HCL 50 MG TAB PO PRN (19:30)
[2020-01-22] MEDS ORDERED: DEXTROSE (50%) 50ML SYRG IV PRN (19:30)
[2020-01-22] MEDS ORDERED: LACTULOSE 20Gm/30ML SOLN PO PRN (19:30)
[2020-01-22] MEDS: FAMOTIDINE 20 MG TAB PO SCH (19:56)
[2020-01-22 20:45] VITALS: BP 103/77
[2020-01-22 21:55] VITALS: BP 103/77
[2020-01-22] MEDS: CLINDAMYCIN 600MG IV 50 ML IV SCH (22:11)
[2020-01-22] MEDS: ATORVASTATIN 20 MG TAB PO SCH (22:11)
[2020-01-22] MEDS: LISINOPRIL 20 MG TAB PO SCH (22:12)
[2020-01-22] MEDS: ACCU-CHEK COMFORT CURVE STRIP VI SCH (22:17)
[2020-01-22] MEDS: InsuLIN REG 1unit/0.01ml Soln (100units/ml) SC SCH (22:17)
[2020-01-23] VITALS (10 sets, daily range): BP systolic 82–124; BP diastolic 51–78
[2020-01-23] MEDS ORDERED: glipiZIDE 5 MG TAB PO SCH (06:00)
[2020-01-23] MEDS: CLINDAMYCIN 600MG IV 50 ML IV SCH ×3 (06:00→21:39)
[2020-01-23] MEDS: ACCU-CHEK COMFORT CURVE STRIP VI SCH ×4 (06:33→21:48)
[2020-01-23] MEDS: InsuLIN REG 1unit/0.01ml Soln (100units/ml) SC SCH ×4 (06:36→21:49)
[2020-01-23 07:15] LABS: Basophils # (auto) 0.1 10 ^3/uL (0-0.2); Eosinophils # (auto) 0.3 10 ^3/uL (0-0.8); Lymphocytes # (auto) 2.7 10 ^3/uL (0.4-5.4); Mean Corpuscular Hgb Conc. 31.9 g/dL (32.0-36.0); Monocytes # (auto) 0.9 10 ^3/uL (0-1.3); Neutrophils # (auto) 7.3 10 ^3/uL (1.6-8.6)
[2020-01-23 07:17] LABS: Basophils % (auto) 0.7 % (0.0-2.0); Eosinophils % (auto) 2.3 % (0.0-7.0); Hematocrit 45.7 % (41.0-53.0); Hemoglobin 14.6 g/dL (13.5-17.5); Lymphocytes % (auto) 24.2 % (10.0-50.0); Mean Corpuscular Hemoglobin 24.6 pg (28.0-32.0); Monocytes % (auto) 8.4 % (0.0-12.0); Neutrophils % (auto) 64.4 % (37.0-80.0); Nucleated Red Blood Cells % 0.1 %; Platelet Count (auto) 262 10^3/uL (140-450); Red Blood Cells 5.94 10^6/uL (4.5-5.90); Red Cell Distribution Width 17.3 % (11.8-14.3); White Blood Cell 11.3 10^3/uL (4.4-10.8)
[2020-01-23] MEDS: FUROSEMIDE 40 MG/4 ML VIAL IV SCH (09:27)
[2020-01-23] MEDS: LISINOPRIL 20 MG TAB PO SCH (09:27)
[2020-01-23] MEDS: FAMOTIDINE 20 MG TAB PO SCH (09:58)
[2020-01-23] MEDS ORDERED: ASPirin 81 mg TAB PO SCH ×2 (10:00)
[2020-01-23] MEDS ORDERED: ENOXAPARIN SOD 40 MG/0.4 ML SYRINGE SC SCH ×2 (10:00)
[2020-01-23] MEDS ORDERED: levoFLOXacin 250MG 50 ML IV SCH (10:00)
[2020-01-23] MEDS ORDERED: POTASSIUM CHL 20 Meq TABLET PO SCH (10:00)
[2020-01-23] MEDS ORDERED: CARVEDILOL 3.125 MG TAB PO ONE (12:45)
[2020-01-23] MEDS ORDERED: ALBUMIN 25% 100 ML IV ONE (13:45)
[2020-01-23] MEDS ORDERED: FUROSEMIDE 40 MG/4 ML VIAL IV ONE (15:00)
[2020-01-23] MEDS: IPRATROPIUM BROM 0.5 MG/2.5ML INH SOL NEB SCH (19:03)
[2020-01-23] MEDS: ALBUTEROL SULF 2.5 MG/0.5ML(0.5%) NEB SOLN NEB SCH (19:03)
[2020-01-23] MEDS: APIXABAN 5 MG TAB PO SCH (21:26)
[2020-01-23] MEDS: ATORVASTATIN 20 MG TAB PO SCH (21:27)
[2020-01-23] MEDS: CARVEDILOL 3.125 MG TAB PO SCH (21:44)
[2020-01-23] MEDS ORDERED: CARVEDILOL 3.125 MG TAB PO SCH (22:00)
[2020-01-24] VITALS (13 sets, daily range): BP systolic 90–143; BP diastolic 45–102
[2020-01-24] MEDS: ALBUTEROL SULF 2.5 MG/0.5ML(0.5%) NEB SOLN NEB SCH ×4 (00:20→18:35)
[2020-01-24] MEDS: IPRATROPIUM BROM 0.5 MG/2.5ML INH SOL NEB SCH ×4 (00:20→18:35)
[2020-01-24 01:18] LABS: Urine Bacteria NONE SEEN /hpf (None Seen); Urine Blood 2+ /uL (Negative); Urine Specific Gravity 1.008 (1.001-1.035); Urine WBC <1 /hpf (0 - 3)
[2020-01-24] MEDS ORDERED: ALBUTEROL SULF 2.5 MG/0.5ML(0.5%) NEB SOLN NEB PRN (02:45)
[2020-01-24 04:06] LABS: Calcium 8.6 mg/dL (8.5-10.1); Potassium 4.1 mmol/L (3.5-5.1)
[2020-01-24 04:09] LABS: BUN/Creatinine Ratio 21.6
[2020-01-24] MEDS: ACCU-CHEK COMFORT CURVE STRIP VI SCH ×4 (06:31→21:23)
[2020-01-24] MEDS: CLINDAMYCIN 600MG IV 50 ML IV SCH (06:31)
[2020-01-24] MEDS: InsuLIN REG 1unit/0.01ml Soln (100units/ml) SC SCH ×4 (06:32→21:23)
[2020-01-24] MEDS: FAMOTIDINE 20 MG TAB PO SCH (10:00)
[2020-01-24] MEDS: FUROSEMIDE 40 MG/4 ML VIAL IV SCH (11:14)
[2020-01-24] MEDS: CARVEDILOL 3.125 MG TAB PO SCH ×2 (11:15→21:20)
[2020-01-24] MEDS: APIXABAN 5 MG TAB PO SCH ×2 (11:15→21:49)
[2020-01-24] MEDS: ACETYLCYSTEINE 10 %(100MG/ML) SOL 4ML NEB SCH ×2 (11:48→18:35)
[2020-01-24] MEDS ORDERED: LINEZOLID 600MG/300ML 300 ML IV SCH (12:00)
[2020-01-24] MEDS ORDERED: levoFLOXacin 750MG 150 ML IV SCH (13:00)
[2020-01-24] MEDS ORDERED: levoFLOXacin 500MG 100 ML IV ONE (13:30)
[2020-01-24] MEDS ORDERED: levoFLOXacin 500MG 100 ML IV SCH (13:30)
[2020-01-24 18:42] LABS: Calcium 8.4 mg/dL (8.5-10.1); Potassium 4.3 mmol/L (3.5-5.1)
[2020-01-24] MEDS: LINEZOLID 600MG/300ML 300 ML IV SCH (21:48)
[2020-01-24] MEDS: ATORVASTATIN 20 MG TAB PO SCH (21:49)
[2020-01-25] VITALS (11 sets, daily range): BP systolic 90–119; BP diastolic 50–126
[2020-01-25] MEDS: ALBUTEROL SULF 2.5 MG/0.5ML(0.5%) NEB SOLN NEB SCH ×4 (00:54→18:36)
[2020-01-25] MEDS: ACETYLCYSTEINE 10 %(100MG/ML) SOL 4ML NEB SCH ×4 (00:54→18:00)
[2020-01-25] MEDS: IPRATROPIUM BROM 0.5 MG/2.5ML INH SOL NEB SCH ×4 (00:54→18:36)
[2020-01-25 04:04] LABS: Eosinophils # (auto) 0.2 10 ^3/uL (0-0.8); White Blood Cell 13.2 10^3/uL (4.4-10.8)
[2020-01-25 04:07] LABS: Basophils # (auto) 0.1 10 ^3/uL (0-0.2); Basophils % (auto) 0.6 % (0.0-2.0); Eosinophils % (auto) 1.5 % (0.0-7.0); Hematocrit 45.7 % (41.0-53.0); Hemoglobin 14.7 g/dL (13.5-17.5); Lymphocytes # (auto) 2.6 10 ^3/uL (0.4-5.4); Lymphocytes % (auto) 19.8 % (10.0-50.0); Mean Corpuscular Hemoglobin 24.9 pg (28.0-32.0); Mean Corpuscular Hgb Conc. 32.2 g/dL (32.0-36.0); Mean Corpuscular Volume 77.4 fL (80.0-100.0); Monocytes # (auto) 1.2 10 ^3/uL (0-1.3); Monocytes % (auto) 9.3 % (0.0-12.0); Neutrophils # (auto) 9.1 10 ^3/uL (1.6-8.6); Neutrophils % (auto) 68.8 % (37.0-80.0); Nucleated Red Blood Cells % 0.1 %; Platelet Count (auto) 258 10^3/uL (140-450); Red Blood Cells 5.91 10^6/uL (4.5-5.90); Red Cell Distribution Width 17.5 % (11.8-14.3)
[2020-01-25 04:21] LABS: BUN/Creatinine Ratio 22.6; Calcium 8.5 mg/dL (8.5-10.1)
[2020-01-25] MEDS: ACCU-CHEK COMFORT CURVE STRIP VI SCH ×4 (05:50→21:17)
[2020-01-25] MEDS: InsuLIN REG 1unit/0.01ml Soln (100units/ml) SC SCH ×4 (06:00→21:18)
[2020-01-25] MEDS: FAMOTIDINE 20 MG TAB PO SCH (09:38)
[2020-01-25] MEDS: LINEZOLID 600MG/300ML 300 ML IV SCH ×2 (09:38→21:08)
[2020-01-25] MEDS: APIXABAN 5 MG TAB PO SCH ×2 (09:38→21:08)
[2020-01-25] MEDS: CARVEDILOL 3.125 MG TAB PO SCH ×2 (09:46→21:07)
[2020-01-25] MEDS: FUROSEMIDE 40 MG/4 ML VIAL IV SCH (09:46)
[2020-01-25] MEDS: ATORVASTATIN 20 MG TAB PO SCH (21:08)
[2020-01-26] VITALS (10 sets, daily range): BP systolic 111–133; BP diastolic 50–84
[2020-01-26] MEDS: ACETYLCYSTEINE 10 %(100MG/ML) SOL 4ML NEB SCH ×3 (00:20→12:44)
[2020-01-26] MEDS: ALBUTEROL SULF 2.5 MG/0.5ML(0.5%) NEB SOLN NEB SCH ×3 (00:20→12:44)
[2020-01-26] MEDS: IPRATROPIUM BROM 0.5 MG/2.5ML INH SOL NEB SCH ×3 (00:20→12:44)
[2020-01-26 03:12] LABS: Basophils # (auto) 0.1 10 ^3/uL (0-0.2); Eosinophils # (auto) 0.3 10 ^3/uL (0-0.8); Monocytes # (auto) 1.1 10 ^3/uL (0-1.3); Neutrophils % (auto) 71.2 % (37.0-80.0)
[2020-01-26 03:14] LABS: Basophils % (auto) 0.9 % (0.0-2.0); Eosinophils % (auto) 2.2 % (0.0-7.0); Hematocrit 47.8 % (41.0-53.0); Hemoglobin 15.3 g/dL (13.5-17.5); Lymphocytes % (auto) 16.9 % (10.0-50.0); Mean Corpuscular Hemoglobin 24.7 pg (28.0-32.0); Mean Corpuscular Hgb Conc. 31.9 g/dL (32.0-36.0); Mean Corpuscular Volume 77.5 fL (80.0-100.0); Monocytes % (auto) 8.8 % (0.0-12.0); Neutrophils # (auto) 8.5 10 ^3/uL (1.6-8.6); Platelet Count (auto) 276 10^3/uL (140-450); Red Blood Cells 6.17 10^6/uL (4.5-5.90)
[2020-01-26 03:31] LABS: Calcium 8.9 mg/dL (8.5-10.1)
[2020-01-26 03:33] LABS: BUN/Creatinine Ratio 21.4
[2020-01-26] MEDS: ACCU-CHEK COMFORT CURVE STRIP VI SCH ×2 (05:56→12:42)
[2020-01-26] MEDS: InsuLIN REG 1unit/0.01ml Soln (100units/ml) SC SCH ×2 (05:56→12:00)
[2020-01-26] MEDS: FUROSEMIDE 40 MG/4 ML VIAL IV SCH (10:49)
[2020-01-26] MEDS: APIXABAN 5 MG TAB PO SCH (10:49)
[2020-01-26] MEDS: FAMOTIDINE 20 MG TAB PO SCH (10:49)
[2020-01-26] MEDS: LINEZOLID 600MG/300ML 300 ML IV SCH (10:49)
[2020-01-26] MEDS: CARVEDILOL 3.125 MG TAB PO SCH (10:50)
[2020-01-26] MEDS ORDERED: levoFLOXacin 750MG 150 ML IV SCH (12:00)
[2020-01-26] MEDS ORDERED: SALINE 0.65 % NASAL SPRAY 45ML BOTTLE EACHNOSTRI SCH (12:00)
[2020-01-30] MEDS ORDERED: APIXABAN 5 MG TAB PO SCH (22:00)
== END 2020-01-26 14:50 | disposition short-term general hospital (02) | DRG 280 ==
LOC: ER 17:17 → EDUNIT# 17:17 → EDBD 17:17 → TELE 17:18 → TELE-WESTW 20:15 → DOU IN ICU 01-23 23:46
PROVIDERS: ADMIT Internal Medicine; ATTEND Internal Medicine
DX: I13.0 Hypertensive heart and chronic kidney disease with heart failure and stage 1 through stage 4 chronic kidney disease, or unspecified chronic kidney disease (principal); I21.A1 Myocardial infarction type 2; J96.01 Acute respiratory failure with hypoxia; I50.43 Acute on chronic combined systolic (congestive) and diastolic (congestive) heart failure; N17.0 Acute kidney failure with tubular necrosis; I26.99 Other pulmonary embolism without acute cor pulmonale; L03.119 Cellulitis of unspecified part of limb; Z68.43 Body mass index [BMI] 50.0-59.9, adult; N18.4 Chronic kidney disease, stage 4 (severe); E11.65 Type 2 diabetes mellitus with hyperglycemia; E78.5 Hyperlipidemia, unspecified; I87.309 Chronic venous hypertension (idiopathic) without complications of unspecified lower extremity; I49.3 Ventricular premature depolarization; E11.40 Type 2 diabetes mellitus with diabetic neuropathy, unspecified; R00.8 Other abnormalities of heart beat; E11.22 Type 2 diabetes mellitus with diabetic chronic kidney disease; E66.01 Morbid (severe) obesity due to excess calories; Z20.828 Contact with and (suspected) exposure to other viral communicable diseases; Z66 Do not resuscitate; F32.9 Major depressive disorder, single episode, unspecified; Z81.8 Family history of other mental and behavioral disorders; Z82.49 Family history of ischemic heart disease and other diseases of the circulatory system; Z79.84 Long term (current) use of oral hypoglycemic drugs; Z83.3 Family history of diabetes mellitus; Z79.899 Other long term (current) drug therapy; Z88.0 Allergy status to penicillin
CPT/HCPCS: 36415; 36600; 71045; 76604; 80048; 80053; 81001; 82805; 82962; 83036; 83735; 83880; 84484; 85025; 85379; 85652; 93005; 93970; 94640; 94667; 94762; G0378; J1815; J1956; J3490; P9047